=== PATIENT | male | born 1990 | race African-American/Black ===

== ENCOUNTER 2020-08-02 14:51 | Emergency (ER) | payer OTHER ==
[2020-08-02 15:03] VITALS: BP 130/68; PULSE 54; BMI 27.6
[2020-08-02 16:45] LABS: BASO % 0.8 % (0-2.0); EOS % 4.7 % (0-4.5); HEMATOCRIT 46.4 % (35.4-49); HEMOGLOBIN 15.7 GM/dL (11.7-16.9); LYMPH % 27.7 % (8-40); MCH 31.4 pg (25.7-33.7); MCHC 33.8 g/dl (32.0-35.9); MEAN CELL VOLUME 92.9 fl (80-96); MEAN PLT VOLUME 8.5 fl (7.5-11.1); NEUT % 55.8 % (42.8-82.8); PLATELET COUNT 254 K/MM3 (134-434); RDW 12.2 % (11.9-15.9); WHITE BLOOD COUNT 6.9 K/mm3 (4.0-10.0)
[2020-08-02 17:03] LABS: CHLORIDE 101 mmol/L (98-107); POTASSIUM 4.4 mmol/L (3.5-5.1); SODIUM 137 mmol/L (136-145)
[2020-08-02 17:05] LABS: CALCIUM 9.2 mg/dL (8.5-10.1)
[2020-08-02 17:06] LABS: ALBUMIN 4.2 g/dl (3.4-5.0); ANION GAP 4 MMOL/L (8-16); BLOOD UREA NITROGEN 11.8 mg/dL (7-18); CO2 32 mmol/L (21-32); GLUCOSE,RANDOM 84 mg/dL (74-106)
[2020-08-02 17:09] LABS: SGOT/AST 19 U/L (15-37); SGPT/ALT 16 U/L (13-61)
[2020-08-02 17:10] LABS: BILIRUBIN,TOTAL 0.8 mg/dL (0.2-1); TOT PROT 8.1 g/dl (6.4-8.2)
[2020-08-02 17:12] LABS: ALK PHOS 65 U/L (45-117)
== END 2020-08-02 18:24 | disposition home or self-care (01) ==
LOC: JERFT 14:51
DX: R07.9 Chest pain, unspecified (principal)
CPT/HCPCS: 36415; 71046-TC-FY; 80053; 82550; 82553; 84484; 85025; 93005; 93010; 99285-25